=== PATIENT | male | born 1950 | race Caucasian/White ===

== ENCOUNTER 2019-06-10 04:11 | Emergency (ER) | payer OTHER, SELFPAY ==
--- NOTE | 2019-06-10 04:13 | ED.MALEGU ---
HPI - Male Genitourinary General Chief complaint: Urogenital-Male Stated complaint: erection for more than 6 hours Time Seen by Provider: 06/10/19 04:12 Source: patient Mode of arrival: Ambulatory Limitations: no limitations History of Present Illness HPI Narrative: 68-year-old male nonsmoker with history of prostate cancer and resultant are rectal dysfunction presents with a painful erection since about 4 in the afternoon (greater than 10 hours on arrival) patient states he tried taking aspirin, using ice as well as Sudafed prior to coming. He denies any injury or history of the same. He did inject Trimix just prior to his erection. HE denies injury. He has significant pain. MD Complaint: other Onset (ago): hour(s) Duration: constant Location: penis Radiation: penis Severity: severe Quality: aching Relieving factors: none Context: other Associated symptoms: Reports denies other symptoms Related Data Previous Rx's Medication Instructions Recorded oxycodone 5 mg PO Q6H PRN #20 tab 06/10/19 Allergies Allergy/AdvReac Type Severity Reaction Status Date / Time No Known Drug Allergies Allergy Verified 06/10/19 04:29 Review of Systems Constitutional Constitutional: Denies chills, Denies fatigue, Denies fever(s), Denies frequent falls, Denies lethargy and Denies weakness Eyes Eyes: Denies change in vision, Denies eye discharge, Denies irritation and Denies loss of vision ENT Ears, Nose, Mouth, and Throat: Denies change in voice, Denies dizziness, Denies neck pain, Denies sore throat and Denies throat swelling Cardiovascular Cardiovascular: Denies chest pain, Denies irregular heart rhythm, Denies lightheadedness, Denies palpitations, Denies dyspnea, Denies dyspnea on exertion and Denies orthopnea Respiratory Respiratory: Denies cough, Denies dyspnea, Denies dyspnea on exertion and Denies wheezing Gastrointestinal Gastrointestinal: Denies abdominal pain, Denies change in bowel habits, Denies diarrhea, Denies nausea and Denies vomiting Genitourinary Genitourinary: Denies hematuria, Reports erectile dysfunction, Denies flank pain, Denies urinary incontinence and Denies urinary urgency Comments: Priapism Musculoskeletal Musculoskeletal: Denies back pain, Denies muscle weakness, Denies neck pain, Denies numbness and Denies tingling Integumentary/Breasts Skin/Breast: Denies pruritus, Denies erythema, Denies rash and Denies wounds Neurologic Neurologic: Denies behavioral changes, Denies confusion, Denies dizziness, Denies frequent falls, Denies loss of vision, Denies numbness, Denies tingling and Denies weakness Psychiatric Psychiatric: Denies anxiety, Denies behavioral changes, Denies confusion, Denies depression, Denies homicidal ideation and Denies suicidal ideation Endocrine Endocrine: Denies fatigue, Denies flushing and Denies palpitations Hematologic/Lymphatic Hematologic/Lymphatic: Denies easy bruising Allergic/Immunologic Allergic/Immunologic: Denies urticaria, Denies throat swelling and Denies wheezing Patient History Social History Smoking Status: Never smoker Exam Narrative Exam Narrative: GEN: AOx3 and in mild distress EYES: Pupils are equal, round, and reactive to light and accommodation. Extraoccular muscles are intact bilaterally. There is no subconjunctival hemorrhage or exudate. CHEST: Lungs are clear to auscultation bilaterally and free of wheezes, rales, or rhonchi. Heart rate is regular rhythm, there are no murmurs, clicks, rubs, or gallops. There is no chest wall tenderness. ABD: Abdomen is soft and nontender. There is no guarding or rebound. Bowel sounds are normal in all 4 quadrants. There is no mass or organomegaly. : Painful full erection. No erythema, crepitance, discoloration. No testicular pain. EXT: Full painless ROM of all extremities with no loss of sensation or strength. SKIN: Warm, pink, and dry. No erythema or rash Initial Vital Signs Initial Vital Signs: Vital Signs Temperature 97.8 F 06/10/19 04:23 Pulse Rate 77 06/10/19 04:23 Respiratory Rate 14 06/10/19 04:23 Blood Pressure 138/89 06/10/19 04:23 Pulse Oximetry 97 06/10/19 04:23 Procedures Penile Procedure Time Out Performed: Yes Indication: priapism management Procedural Sedation: No Sedation/Analgesia: none Local Anesthesia Used: bupivacaine 0.25% Amount of anesthesia used (mL): 4 Priapism Management: aspiration and phenylephrine injection Patient Tolerated Procedure: Well Complications: none Course Orders Ordered: ED Orders 06/10/19 05:10 VBG [Venous Blood Gas] Stat Discontinued Medications Bupivacaine HCl (Sensorcaine 0.5%) 5 ml SUBCUT NOW ONE Stop: 06/10/19 04:30 Bupivacaine HCl (Sensorcaine 0.5% (Pf)) 5 ml SUBCUT NOW ONE Stop: 06/10/19 04:57 Last Admin: 06/10/19 07:01 Dose: 5 ml Documented by: KRISTA Oxycodone/Acetaminophen (Endocet 5/325 Prepack) 1 bottle MISC SEEINSTR ONE Stop: 06/10/19 07:22 Last Admin: 06/10/19 07:51 Dose: 1 bottle Documented by: CLAUDIA Reevaluation(s) Reevaluation #1: 2nd round of irrigation performed closer to base of penis with significant improvement. Call back to and Dr. Knight is now subscription clerk and will arrange for patient to be seen in Clinic tomorrow. No need for transfer today. She recommends pain meds, icing, return precautions and follow up. Consultations Consultation #1: initial call to local urology (Dr. Cintron) after aspiration, irrigation and phenylephrine provided little change. He suggested that given time frame the patient has a very high likelihood of permanent dysfunction which I relayed to patient and he understands. Also, recommended a call to Urology. Consultation #2: call to Urology. They recommend another round of irrigation, suggesting larger volume of fluid, prior to transfer for a patient that will likely have permanent dysfunction. Vital Signs Vital signs: Vital Signs - 8 hr 06/10/19 04:23 06/10/19 07:41 Temperature 97.8 F Pulse Rate 77 77 Respiratory Rate 14 16 Blood Pressure 138/89 Blood Pressure [Left Arm] 140/81 Pulse Oximetry 97 96 MDM - Male Genitourinary Lab Data Labs: Lab Results 06/10/19 Range/Units 05:10 VBG pH 6.83 L* (7.33-7.43) VBG pCO2 63.4 H (45-50) mmHg VBG pO2 17 L (35-45) mmHg VBG HCO3 11 L (23-28) mmol/L VBG Total CO2 12 L (24-29) mmol/L VBG O2 Saturation 9 L (70-75) % VBG Base Excess -24.0 L (0-4) mmol/L Critical Care Time Critical Care Time Critical Care Time: Yes Total Critical Care Time: 35 Attestation: The high probability of a clinically significant, sudden or life threatening deterioration of the [] system(s) required my full and direct attention, intervention and personal management. The aggregate critical care time was [35] minutes. This time is in addition to time spent performing reported procedures but includes the following: [x] Data Review and interpretation [x] Patient assessment and monitoring of vital signs [x] Documentation [x] Medication orders and management Discharge Plan Departure Patient Disposition: Home Clinical Impression: Priapism Discharge Date/Time: 06/10/19 07:58 Instructions: DI for Priapism Activity Restrictions/Additional Instructions: *You have been diagnosed with [ priapism. Our procedures today have helped improve your symptoms. Despite this symptomatic improvement you are at significant risk to have permanent dysfunction ] *What to do: *Take medications as directed: Your pain meds were electronically transmitted to [facility] in [place] *Follow up with the Urology Clinic tomorrow. Let them know that I've spoken with Dr. Knight and that she wanted you to present to the clinic and they would see you. *Return to ER if you should have any new, worsening or concerning symptoms Prescriptions: New oxycodone 5 mg tablet 5 mg PO Q6H PRN (Reason: pain) Qty: 20 RF: 0
[2019-06-10 04:23] VITALS: BP 138/89; PULSE 77; RESP 14; TEMP 36.6; O2SAT 97; BMI 29.7
--- NOTE | 2019-06-10 04:37 | PC.NURSE ---
reports erection since 1830 last night after taking trimix for ED. Reports he took 5 sudafeds to atttempt to resolve erection with no change.
[2019-06-10 05:39] LABS: HCO3 VBG 11 mmol/L (23-28); PCO2 VBG 63.4 mmHg (45-50); PO2 VBG 17 mmHg (35-45); Total CO2 VBG 12 mmol/L (24-29); pH VBG 6.83 (7.33-7.43)
[2019-06-10 05:40] LABS: Oxygen Saturation VBG 9 % (70-75)
[2019-06-10] MEDS: BUPIVACAINE 0.5% (PF) VIAL 5 ML SUBCUT (07:01)
[2019-06-10 07:41] VITALS: BP 140/81; PULSE 77; RESP 16; O2SAT 96
[2019-06-10] MEDS: OXYCODONE/APAP 5/325 PREPACK 1 BOTTLE MISC (07:51)
--- NOTE | 2019-06-10 19:38 | PC.NURSE ---
patient experienced brief moments of pain when injecting bupivicane. Pain quickly resolved and patient comfortable for rest of procedure.
== END 2019-06-10 07:58 | disposition home or self-care (01) ==
PROVIDERS: Emergency Provider Emergency Medicine
DX: N48.30 Priapism, unspecified (principal)
CPT/HCPCS: 54220; 82805; 99281; 99291

== ENCOUNTER 2022-12-08 11:44 | Emergency (ER) | payer MEDICARE, SELFPAY ==
[2022-12-08 11:49] VITALS: BP 132/78; PULSE 78; RESP 18; TEMP 36.7; O2SAT 98; BMI 29.4
--- NOTE | 2022-12-08 11:50 | ED_ITS ---
HPI - Extremity Problem <ROBI Og - Last Filed: 12/08/22 12:49> General Chief complaint: Extremity Problem,Nontraumatic Stated complaint: redness swelling pain lt foot/trouble walking Time Seen by Provider: 12/08/22 11:49 History of Present Illness HPI Narrative: This is a 72-year-old gentleman who presents to the emergency department complaining of left foot pain, redness and swelling to his left foot which started yesterday on a long flight back from [place]. Patient states that he sat [place] the [place] 5 hours and then had a 6 hour flight so he was sitting for long period of time when he was developing midfoot pain to his right foot on the lateral aspect. He states that he did a lot of walking while he was in [place], got , and did not wear the best shoes while he was walking a lot. States that the pain and swelling started after he sat down on plane and did not hurt before that. He denies any wounds, states that he has a mole to the great toe that has been there for ever in his slightly irritated is swollen foot. He jaquan es any tenderness to the skin on his foot. Related Data Previous Rx's Medication Instructions Recorded oxycodone 5 mg tablet 5 mg PO Q6H PRN pain #20 tabs 06/10/19 diclofenac sodium 1 % topical gel 4 g topical QID #100 grams 12/08/22 oxycodone 5 mg tablet 5 mg PO BID PRN pain #14 tabs 12/08/22 prednisone 20 mg tablet 20 mg PO DAILY #5 tabs 12/08/22 Allergies Allergy/AdvReac Type Severity Reaction Status Date / Time No Known Drug Allergies Allergy Verified 06/10/19 04:29 Review of Systems <ROBI Og - Last Filed: 12/08/22 12:49> Review of Systems ROS Unobtainable: All systems reviewed & are unremarkable except as noted in HPI and below Patient History <ROBI Og - Last Filed: 12/08/22 12:49> Social History Smoking Status: Never smoker Smoking Status: Never smoker alcohol intake frequency: 0-2 drinks per day Alcohol type: beer, wine and hard liquor Substance Use Type: does not use Exam <ROBI Og - Last Filed: 12/08/22 12:49> Narrative Exam Narrative: MSK: No wound, patient has tenderness in the forefoot from the plantar aspect with pressure over the 4th and 5th metatarsals, no tenderness to the dorsum of his foot on skin, mild swelling on the lateral forefoot, no significant ecchymosis or point tenderness. He is tender with lateral pressure over the distal 5th metatarsal Initial Vital Signs Initial Vital Signs: Vital Signs Temperature 98.1 F 12/08/22 11:49 Pulse Rate 78 12/08/22 11:49 Respiratory Rate 18 12/08/22 11:49 Blood Pressure 132/78 12/08/22 11:49 Pulse Oximetry 98 12/08/22 11:49 Oxygen Delivery Method Room Air 12/08/22 11:49 <DO Werner Forte Last Filed: 12/08/22 15:42> Initial Vital Signs Initial Vital Signs: Vital Signs Temperature 98.1 F 12/08/22 11:49 Pulse Rate 78 12/08/22 11:49 Respiratory Rate 18 12/08/22 11:49 Blood Pressure 132/78 12/08/22 11:49 Pulse Oximetry 98 12/08/22 11:49 Oxygen Delivery Method Room Air 12/08/22 11:49 Course <ROBI Og - Last Filed: 12/08/22 12:49> Orders Ordered: ED Orders 12/08/22 11:57 XR foot RT 2V Stat Discontinued Medications Acetaminophen (Acetaminophen 325 Mg Tablet) 975 mg PO NOW ONE Stop: 12/08/22 12:12 Last Admin: 12/08/22 12:23 Dose: Not Given Documented By: AT Prednisone (Prednisone 20 Mg Tablet) 20 mg PO NOW ONE Stop: 12/08/22 12:12 Last Admin: 12/08/22 12:23 Dose: 20 mg Documented By: AT Vital Signs Vital signs: Vital Signs - 8 hr 12/08/22 11:49 Temperature 98.1 F Pulse Rate 78 Respiratory Rate 18 Blood Pressure 132/78 Pulse Oximetry 98 Oxygen Delivery Method Room Air <DO Werner Forte Last Filed: 12/08/22 15:42> Orders Ordered: ED Orders 12/08/22 11:57 XR foot RT 2V Stat Discontinued Medications Acetaminophen (Acetaminophen 325 Mg Tablet) 975 mg PO NOW ONE Stop: 12/08/22 12:12 Last Admin: 12/08/22 12:23 Dose: Not Given Documented By: AT Prednisone (Prednisone 20 Mg Tablet) 20 mg PO NOW ONE Stop: 12/08/22 12:12 Last Admin: 12/08/22 12:23 Dose: 20 mg Documented By: AT Vital Signs Vital signs: Vital Signs - 8 hr 12/08/22 11:49 Temperature 98.1 F Pulse Rate 78 Respiratory Rate 18 Blood Pressure 132/78 Pulse Oximetry 98 Oxygen Delivery Method Room Air MDM - Extremity (Nontraumatic) <ROBI Og - Last Filed: 12/08/22 12:49> Imaging Data Extremity x-ray #1: Radiologist's Impression: [address] [address] XRay Report Signed Patient: Steven Mccray MR#: [id number] : 1950 Acct:[id number] Age/Sex: 72 / M Date of Service: 12/08/22 Loc: ED Accession Number: [id number] ?? Procedure: XR foot RT 2V Ordering Provider: Gena Melgoza PROCEDURE:? XR FOOT RT 2V ? INDICATIONS:? redness swelling, eval for fx vs cellulitis ? TECHNIQUE:? 3 views of the foot were acquired.? ? COMPARISON:? None. ? FINDINGS:? ? Bones:? No fractures or dislocations.? No suspicious bony lesions.? Healed fracture deformity of the 5th distal metatarsal. ? Soft tissues:? No tibiotalar joint effusion.? Linear calcification in the distal Achilles tendon, likely calcific tendinopathy. ? IMPRESSION:? No subcutaneous gas or evidence of osteomyelitis. Dictated by: Hubert Hand M.D. on 12/08/2022 at 12:21 ? ? Approved by: Hubert Hand M.D. on 12/08/2022 at 12:22 ? MDM Narrative Medical decision making narrative: Chief Complaint: foot pain, redness and swelling Primary historian: Multiple etiologies for patient's complaint considered including, but not limited to: DVT, cellulitis, ligamental sprain, fracture, acute fracture, occult fracture, muscle strain, plantar fasciitis Patient has symptoms consistent with a sprain/strain likely secondary to inappropriate shoes while hiking and walking on vacation. I have independently reviewed the patient's vital signs and nursing notes as well as prior records if available. My interpretation of imaging: Foot x-ray is negative for acute fracture, subcutaneous gas, or other bony abnormality. Course of care: This is most likely sprain, offered orthopedic shoe but patient was wearing slip-on shoes with adequate arch support, states he has good arch support shoes at home so he will wear these consistently. He was given crutches so he can avoid bearing weight on this foot. He can not take NSAIDs so he was given prednisone 20 mg for 5 days for inflammation, encouraged to elevate, ice, rest his foot, and apply topical diclofenac gel as needed. He was given ox ycodone to use for pain control in the meantime. He is recommended follow-up with Podiatry if his foot pain does not improve after doing the above therapies. Social considerations that may affect disposition: none Questions are addressed and there is agreement with the plan and for follow-up. I consulted with the ED attending physician Dr. Rosas as needed for higher level of care considerations and they were available for discussion and recommendations regarding plan of care and diagnostic testing. Patient is appropriate for outpatient management. Discharge Plan Departure Patient Disposition: Home Clinical Impression: Edema of right foot, Foot pain, right Foot sprain Qualifiers: Encounter type: initial encounter Laterality: left Qualified Code(s): S93.602A - Unspecified sprain of left foot, initial encounter Instructions: DI for Foot Sprain Activity Restrictions/Additional Instructions: *You have been diagnosed with likely a foot sprain. If you have progressive swelling of your foot, lower leg, please come back in for evaluation. This is most likely a sprain of the ligaments in your foot from poor arch support in your she was while in [place]. Please wear shoes with adequate arch support that are easy to wear and help with comfort. Please elevate your foot frequently use ice, pain pill, and topical diclofenac gel up to 4 times a day. This should start to get better, please follow-up with Podiatry if you have ongoing foot pain with walking. X-ray does not show any acute fractures. Use your crutches as needed elevation will be ritchie and try to avoid walking on this as much as possible over the next few days to allow this to heal. *What to do: *Please continue to take your regular medications as directed. [x ] New medication prescriptions sent to your pharmacy: [[facility] ] [ ] New medication written as a paper prescription [ ] No new medications given *Please call and schedule follow up with your primary care provider in 2-3 days, at least for an update. Let them know you were seen in the Emergency Department for the above problem. We will electronically transmit a record of today's note if your PCP or specialist is in our system. *If you do not have a primary care provider please contact [phone] to establish care with one of the [facility] primary care providers. *Return to the Emergency Department for worsening symptoms, inability to keep liquids down, fever greater than 101F, chills, or other concerning symptom. Prescriptions: New prednisone 20 mg tablet 20 mg PO DAILY Qty: 5 0RF diclofenac sodium 1 % gel 4 g topical QID Qty: 100 2RF Rx Instructions: apply to foot up to 4 times a day as needed for pain oxycodone 5 mg tablet 5 mg PO BID PRN (Reason: pain) Qty: 14 0RF Rx Instructions: Please take with stool softener No Action oxycodone 5 mg tablet 5 mg PO Q6H PRN (Reason: pain) Qty: 20 0RF Referrals: Laisha Ngo DPM [Physician] - (I believe she sees patients in [place] also) Cecilia Knight PA-C [Primary Care Provider] - Diony Elise DPM [Physician] - Stand Alone Forms: Patient Portal/API <Cory Rosas DO - Last Filed: 12/08/22 15:42> [facility] Dr Rosas Co-Sign Statement: I was available for consultation during this patient's emergency department visit. This chart is signed by myself for administrative purposes only. I did not have direct contact with this patient during this visit. They were seen independently by the APC.
--- NOTE | 2022-12-08 11:57 | DI.RAD.S_ITS ---
PROCEDURE: XR FOOT RT 2V INDICATIONS: redness swelling, eval for fx vs cellulitis TECHNIQUE: 3 views of the foot were acquired. COMPARISON: None. FINDINGS: Bones: No fractures or dislocations. No suspicious bony lesions. Healed fracture deformity of the 5th distal metatarsal. Soft tissues: No tibiotalar joint effusion. Linear calcification in the distal Achilles tendon, likely calcific tendinopathy. IMPRESSION: No subcutaneous gas or evidence of osteomyelitis. Dictated by: Hubert Hand M.D. on 12/08/2022 at 12:21 Approved by: Hubert Hand M.D. on 12/08/2022 at 12:22
[2022-12-08] MEDS: predniSONE 20 MG TABLET PO (12:23)
== END 2022-12-08 12:46 | disposition home or self-care (01) ==
PROVIDERS: Emergency Provider Nurse Practitioner Critical Care Medicine; PCP Physician Assistant
DX: R60.0 Localized edema (principal); S93.602A Unspecified sprain of left foot, initial encounter; M79.671 Pain in right foot
CPT/HCPCS: 73620; 99283; 99284

== ENCOUNTER → 2024-08-29 08:56 | Outpatient (CLI) | payer MEDICARE, OTHER, SELFPAY ==
[2024-08-29 09:36] LABS: Hematocrit 45.5 % (41-53); Hemoglobin 15.7 g/dL (13.5-17.5); Mean Corpuscular HGB Conc 34.5 % (30-36); Mean Corpuscular Hemoglobin 32.9 PG (26-34); Mean Corpuscular Volume 95.4 fL (80-100); Platelet Count 216 X10^3/uL (150-400); Red Blood Cell Count 4.77 X10^6/uL (4.5-5.9); Red Cell Distribution Width 12.6 % (11.6-14.8); White Blood Cell Count 8.1 X10^3/uL (4.5-11.0)
[2024-08-29 10:02] LABS: Alanine Aminotransferase 37 IU/L (<50); Albumin 4.5 g/dL (3.5-5.0); Albumin Globulin Ratio 1.8 (1.0-2.8); Alkaline Phosphatase 68 U/L (38-126); Aspartate Aminotransferase 41 IU/L (17-59); BUN Creatinine Ratio 17.6 (6-22); Bilirubin Total 0.8 mg/dL (0.2-1.3); Blood Urea Nitrogen 49 mg/dL (9-20); Calcium 10.2 mg/dL (8.4-10.2); Carbon Dioxide 21 mmol/L (22-32); Chloride 103 mmol/L (98-107); Cholesterol 225 mg/dL (140-199); Estimated Glomerular Filt Rate 23 mL/min (>60); Globulin 2.5 g/dL (1.7-4.1); Glucose 105 mg/dL (80-110); HDL Cholesterol 43 mg/dL (40-60); HEMOLYSIS < 15 (0-50); Potassium 5.3 mmol/L (3.4-5.1); Sodium 134 mmol/L (137-145); Triglycerides 413 mg/dL (35-150)
[2024-08-29 10:33] LABS: Prostate Specific Antigen Scrn < 0.064 ng/mL (0.1-4.0)
[2024-08-29 10:51] LABS: Hep C Virus Ab w/Reflex Quant NEGATIVE s/c (NEGATIVE)
== END ==
PROVIDERS: PCP Family Medicine; Referring Provider Family Medicine; Visit Provider Family Medicine
DX: I25.10 Atherosclerotic heart disease of native coronary artery without angina pectoris (principal); Z12.5 Encounter for screening for malignant neoplasm of prostate; Z13.9 Encounter for screening, unspecified; N28.9 Disorder of kidney and ureter, unspecified; Z85.46 Personal history of malignant neoplasm of prostate; Z11.59 Encounter for screening for other viral diseases
CPT/HCPCS: 36415; 80053; 80061; 85027; 86803; G0103